=== PATIENT | male | born 1965 | race Caucasian/White ===

== ENCOUNTER 2017-11-15 00:13 | Emergency (ER) | payer OTHER ==
[2017-11-15 00:23] VITALS: BP 146/83; PULSE 58; RESP 15; TEMP 97.7; O2SAT 98
[2017-11-15] MEDS ORDERED: IBUPROFEN 800 MG TAB PO ONE (01:15)
[2017-11-15] MEDS ORDERED: PENICILLIN V POTASSIUM 500 MG TAB PO ONE (01:15)
[2017-11-15] MEDS ORDERED: PENI500T PO (01:16)
--- NOTE | 2017-11-15 01:20 | PD ---
HPI Chief Complaint: Cold / Flu Symptoms Time Seen by Provider: 01:10 Travel History International Travel<30 days: No Contact w/Intl Traveler<30days: No Traveled to known affect area: No History of Present Illness HPI 52-year-old white male presents emergency department with complaints of sore throat over the last 2 days. He has had some runny nose, congestion, slight cough, left ear pain and sore throat. Symptoms are moderate. Worse with swallowing. No alleviating factors. Patient denies any fever chills. No nausea vomiting. No abdominal pain or diarrhea. No dysuria frequency. No rash or lesion. Patient states that he is on vacation. PFSH Past Medical History Medical History: Denies Significant Hx Immunizations Current: No Tetanus Vaccination: < 5 Years Influenza Vaccination: No Past Surgical History Surgical History: No Previous Surgery Social History Alcohol Use: No Tobacco Use: No Substance Use: No Allergies-Medications (Allergen,Severity, Reaction): Coded Allergies: No Known Allergies (Unverified , 11/15/17) Reported Meds & Prescriptions Reported Meds & Active Scripts Active Penicillin V Potassium 500 Mg Tab 500 Mg PO Q8H 10 Days Review of Systems Except as stated in HPI: all other systems reviewed are Neg Physical Exam Narrative GENERAL: Well-developed, well-nourished in no acute distress. Nontoxic appearing. HEAD: Normocephalic, atraumatic. EYES: Pupils equal round and reactive. Extraocular motions intact. No scleral icterus. No injection or drainage. ENT: TMs clear without erythema. The external auditory canals clear. Nose: clear . Posterior pharynx is mildly erythematous and moist. No tonsillar edema or exudate. Uvula midline. Airway patent. NECK: Trachea midline.Supple, nontender, moves head freely. No central bony tenderness or spasm. CARDIOVASCULAR: Regular rate and rhythm without murmurs, gallops, or rubs. RESPIRATORY: Clear to auscultation. Breath sounds equal bilaterally. No wheezes , rales, or rhonchi. GASTROINTESTINAL: Abdomen soft, non-tender, nondistended. No hepato-splenomegaly , or palpable masses. No guarding. EXTREMITIES: No clubbing, cyanosis, or edema. No joint tenderness, effusion, or edema noted. BACK: Nontender without deformity or crepitance. No flank tenderness. Data Data Last Documented VS Vital Signs Date Time Temp Pulse Resp B/P (MAP) Pulse Ox O2 Delivery O2 Flow Rate FiO2 11/15/17 00:23 97.7 58 15 146/83 (104) 98 Orders Orders Ed Discharge Order (11/15/17 01:13) Penicillin V Potassium (Veetids) (11/15/17 01:15) Ibuprofen (Motrin) (11/15/17 01:15) MDM Medical Decision Making Medical Screen Exam Complete: Yes Emergency Medical Condition: Yes Medical Record Reviewed: Yes Differential Diagnosis MDM: High Differential diagnoses: Strep throat, viral pharyngitis, mono, peritonsillar abscess Narrative Course The patient is offered a strep throat test which she has declined. Patient states that he would rather be treated for possible strep throat. Patient is given Pen-Vee K 500 mg p.o.and Motrin 800 mg p.o. This is acute pharyngitis Diagnosis Primary Impression: Acute pharyngitis Patient Instructions: General Instructions Additional Instructions: Rest. Force fluids. Saltwater gargles. Tylenol and Advil. Chloraseptic Seibert Cepastat lozenge. Pen-Vee K. Follow-up with a primary care doctor in one week. Return to the ER if any problems. Med/Other Pt SpecificInfo: Prescription(s) given Scripts Penicillin V Potassium (Penicillin V Potassium) 500 Mg Tab 500 MG PO Q8H for Infection for 10 Days, #30 TAB 0 Refills Prov: Shahana Canchola MD 11/15/17 Disposition: 01 DISCHARGE HOME Condition: Stable Sukhdeep Vaca Nov 15, 2017 01:20
== END 2017-11-15 01:33 | disposition home or self-care (01) ==
LOC: NEPD 00:13
DX: J02.9 Acute pharyngitis, unspecified (principal)
CPT/HCPCS: 99283